=== PATIENT | male | born 1955 | race Caucasian/White ===

== ENCOUNTER 2021-06-28 22:25 | Emergency (ER) | payer OTHER ==
[~2021-06-28] VITALS: Ht 160 cm; Wt 72.6 kg
[2021-06-28 22:40] VITALS: BP 164/100
--- NOTE | 2021-06-28 22:43 | NUR ---
TO LOBBY A/W BED AMBULATORY
[2021-06-28] MEDS ORDERED: LIDOCAINE 2% 1000 MG/50 ML VIAL INJ ONE (23:35)
[2021-06-28] MEDS ORDERED: BACITRACIN OINT 500 UNITS/GM PKT TP ONE (23:35)
--- NOTE | 2021-06-28 23:40 | NUR ---
BIBS FOR C/C LACERATION TO LEFT 5TH DIGIT X 2 HOURS AGO. 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 NOTED WITH 2CM LACERATION. +SENSATION. LIMITED MOBILITY. PT REPORTS TAKING IBUPROFEN WITH MILD RELIEF. BLEEDING CONTROLLED AT THIS TIME. MED HX: HTN ALLERGIES: NKA
--- NOTE | 2021-06-28 23:58 | NUR ---
XRAY AT BEDSIDE.
--- NOTE | 2021-06-29 01:00 | NUR ---
ERMD AT BEDSIDE FOR PROCEDURE.
[2021-06-29] MEDS ORDERED: NAPR-54 PO (01:22)
[2021-06-29] MEDS ORDERED: CEPH-588 PO (01:22)
[2021-06-29 02:25] VITALS: BP 158/99
--- NOTE | 2021-06-29 02:25 | NUR ---
Patient discharged with v/s stable. Written and verbal after care instructions given and explained. Patient alert, oriented and verbalized understanding of instructions. Ambulatory with steady gait. All questions addressed prior to discharge. ID band removed. Patient advised to follow up with PMD. Rx of KEFLEX AND NAPROSYN given. Patient educated on indication of medication including possible reaction and side effects. Opportunity to ask questions provided and answered.
== END 2021-06-29 02:25 | disposition home or self-care (01) ==
LOC: MED 22:25
DX: S62.637A Displaced fracture of distal phalanx of left little finger, initial encounter for closed fracture (principal); S61.217A Laceration without foreign body of left little finger without damage to nail, initial encounter; I10 Essential (primary) hypertension; Z79.899 Other long term (current) drug therapy; W31.89XA Contact with other specified machinery, initial encounter; Y93.89 Activity, other specified; Y92.89 Other specified places as the place of occurrence of the external cause; Y99.0 Civilian activity done for income or pay
CPT/HCPCS: 12001; 73140; 90471; 90715; 99283; J2001